=== PATIENT | female | born 1985 | race Caucasian/White ===

== ENCOUNTER 2019-04-19 06:03 | Inpatient (IN) ==
[2019-04-19] MEDS ORDERED: Albuterol 2.5 MG/3 ML NEBULIZER IH PRN (06:28)
[2019-04-19] MEDS ORDERED: Lidocaine -MPF 4% 5 ML AMPUL ONE (06:44)
[2019-04-19] MEDS ORDERED: *HR* Rocuronium Bromide 50 MG/5 ML VIAL ONE ×2 (06:44→09:56)
[2019-04-19] MEDS ORDERED: Lidocaine -MPF 2% 2 ML VIAL ONE (06:44)
[2019-04-19] MEDS ORDERED: Dexamethasone 4 MG/ML VIAL ONE (06:44)
[2019-04-19] MEDS ORDERED: *HR* Propofol 200 MG/20 ML VIAL IVP ONE (06:45)
[2019-04-19] MEDS ORDERED: *HR* Midazolam HCl 2 MG/2 ML VIAL ONE ×2 (06:45→07:34)
[2019-04-19] MEDS ORDERED: Acetaminophen IV 1,000 MG/100 ML INFUS..BTL IVPB ONE (07:11)
[2019-04-19] MEDS ORDERED: Pregabalin 75 MG CAPSULE PO ONE (07:11)
[2019-04-19] MEDS ORDERED: Scopolamine Patch 1.5 MG PATCH.TD72 TD ONE (07:11)
[2019-04-19] MEDS ORDERED: Famotidine 20 MG/2 ML VIAL IVP ONE (07:11)
[2019-04-19] MEDS ORDERED: *HR* HYDROmorphone (PF) 1 MG/ML SYRINGE IVP PRN (07:13)
[2019-04-19] MEDS ORDERED: *HR* Labetalol 20 MG/4 ML SYRINGE IVP PRN (07:13)
[2019-04-19] MEDS ORDERED: *HR* OxyCODONE Immed Rel 5 MG TABLET PO PRN (07:13)
[2019-04-19] MEDS ORDERED: *HR* HYDROmorphone 2 MG TABLET PO PRN (07:13)
[2019-04-19] MEDS ORDERED: *HR* Promethazine 25 MG/ML VIAL IVP PRN (07:13)
[2019-04-19] MEDS ORDERED: Bupivacaine/EPI 1:200k 0.25%PF 10 ML VIAL INFILT ONE (07:21)
[2019-04-19] MEDS: Ringers Solution, Lactated 1,000 ML IVC SCH ×3 (07:45→19:13)
[2019-04-19] MEDS ORDERED: *HR* HYDROMORPHONE 2 MG/ML VIAL ONE (08:08)
[2019-04-19] MEDS ORDERED: Neostigmine Methylsulfate 3 MG/3 ML SYRINGE ONE (09:03)
[2019-04-19] MEDS ORDERED: Ketorolac 30 MG/ML VIAL ONE (09:04)
[2019-04-19] MEDS ORDERED: ceFAZolin 2,000 MG in Water for inj. (sterile) 20 ML IVP ONE (10:36)
[2019-04-19] MEDS ORDERED: Dexamethasone 4 MG/ML VIAL IVP ONE (12:36)
[2019-04-19] MEDS ORDERED: Simethicone 80 MG TAB.CHEW PO PRN (13:41)
[2019-04-19] MEDS ORDERED: Oxytocin 20 units/ LR 1000 mL 20 UNIT/1,000 ML BAG IVC SCH (13:41)
[2019-04-19] MEDS ORDERED: Metoclopramide 10 MG/2 ML VIAL IVP PRN (13:41)
[2019-04-19] MEDS ORDERED: Naloxone 0.4 MG/ML INJ IVP PRN (13:41)
[2019-04-19] MEDS ORDERED: Sennosides 8.6 MG TABLET PO PRN (13:41)
[2019-04-19] MEDS ORDERED: *HR* Promethazine 25 MG/ML VIAL IVP ONE (13:57)
[2019-04-19] MEDS: *HR* HYDROmorphone (PF) 1 MG/ML SYRINGE IVP PRN ×2 (14:40→19:07)
[2019-04-19] MEDS ORDERED: Ringers Solution, Lactated 1,000 ML ONE (18:54)
[2019-04-19] MEDS: *HR* Promethazine 25 MG/ML VIAL IVP PRN (20:32)
[2019-04-19] MEDS: carBAMazepine 200 MG TABLET PO SCH (20:35)
[2019-04-19] MEDS: *HR* OxyCODONE Immed Rel 5 MG TABLET PO PRN (22:52)
[2019-04-20] MEDS: *HR* HYDROmorphone (PF) 1 MG/ML SYRINGE IVP PRN ×5 (00:10→21:33)
[2019-04-20] MEDS: *HR* OxyCODONE Immed Rel 5 MG TABLET PO PRN ×3 (02:52→18:12)
[2019-04-20] MEDS ORDERED: Ringers Solution, Lactated 1,000 ML IVC SCH (08:00)
[2019-04-20] MEDS: clonazePAM 1 MG TABLET PO SCH (08:31)
[2019-04-20] MEDS: carBAMazepine 200 MG TABLET PO SCH ×2 (08:31→21:32)
[2019-04-20 09:14] LABS: Basophils # 0.1 K/mcL (0.0-0.2); Basophils % 0.3 %; Eosinophils # 0.1 K/mcL (0.0-0.6); Eosinophils % 0.6 %; Hematocrit 36.8 % (35.3-44.9); Hemoglobin 12.9 g/dL (11.5-15.4); Immature Granulocytes % 0.6 % (0-4); Lymphocytes # 2.6 K/mcL (0.6-4.6); Lymphocytes % 16.9 %; Mean Corpuscular HGB Conc 35.1 g/dL (31.6-35.5); Mean Corpuscular Hemoglobin 32.7 pg (28.0-33.3); Mean Corpuscular Volume 93.4 fL (83.0-100.0); Mean Platelet Volume 9.5 fL (9.4-12.4); Monocytes # 1.1 K/mcL (0.0-1.3); Monocytes % 6.9 %; Neutrophils # 11.5 K/mcL (1.6-8.9); Platelet Count 326 K/mcL (140-400); Red Blood Count 3.94 M/mcL (3.82-4.97); Red Cell Distribution Width 12.7 % (11.5-14.5); Segmented Neutrophils % 74.7 %; White Blood Count 15.4 K/mcL (4.3-11.1)
[2019-04-20] MEDS ORDERED: Isovue-370 500 ML BOTTLE IVP ONE (10:01)
[2019-04-20] MEDS ORDERED: *HR* HYDROmorphone (PF) 1 MG/ML SYRINGE IVP ONE (10:01)
[2019-04-20] MEDS: *HR* Promethazine 25 MG/ML VIAL IVP PRN ×2 (11:16→22:01)
[2019-04-20 12:55] LABS: eGFR For African Americans > 60 (> 60); eGFR For Non-African Americans > 60 (> 60)
[2019-04-20] MEDS: Ibuprofen 600 MG TABLET PO PRN (18:12)
[2019-04-20] MEDS: Sulfamethoxazole/Trimeth DS 1 EACH TABLET PO SCH (22:01)
[2019-04-21] MEDS: Ringers Solution, Lactated 1,000 ML IVC SCH (00:13)
[2019-04-21] MEDS: Ibuprofen 600 MG TABLET PO PRN ×2 (00:19→11:31)
[2019-04-21] MEDS: Acetaminophen 325 MG TABLET PO PRN ×2 (00:20→08:21)
[2019-04-21] MEDS: *HR* OxyCODONE Immed Rel 5 MG TABLET PO PRN ×3 (00:20→12:34)
[2019-04-21] MEDS: *HR* HYDROmorphone (PF) 1 MG/ML SYRINGE IVP PRN (03:45)
[2019-04-21] MEDS: *HR* Promethazine 25 MG/ML VIAL IVP PRN (04:23)
[2019-04-21 05:55] LABS: Hemoglobin 12.1 g/dL (11.5-15.4); Mean Corpuscular HGB Conc 34.6 g/dL (31.6-35.5); Mean Corpuscular Hemoglobin 33.3 pg (28.0-33.3); Mean Corpuscular Volume 96.4 fL (83.0-100.0); Platelet Count 197 K/mcL (140-400); Red Blood Count 3.63 M/mcL (3.82-4.97); Red Cell Distribution Width 12.9 % (11.5-14.5); White Blood Count 10.1 K/mcL (4.3-11.1)
[2019-04-21] MEDS: clonazePAM 1 MG TABLET PO SCH (08:21)
[2019-04-21] MEDS: carBAMazepine 200 MG TABLET PO SCH (08:22)
[2019-04-21] MEDS: Sulfamethoxazole/Trimeth DS 1 EACH TABLET PO SCH (08:22)
[2019-04-21 08:24] VITALS: BP 126/87
[2019-04-21] MEDS ORDERED: Neosporin OINT 15 GM TUBE TP SCH (09:00)
== END 2019-04-21 13:16 | disposition home or self-care (01) | DRG 518 ==
LOC: SAMDAY 06:03 → 1NENUOBS 13:21
PROVIDERS: ADMIT Registered Nurse; ATTEND Obstetrics & Gynecology